=== PATIENT | female | born 1995 ===

== ENCOUNTER 2023-08-04 08:19 | Outpatient (CLI) | payer OTHER ==
--- NOTE | 2023-08-06 11:02 | MRI Report ---
PROCEDURE: Lumbar Spine WO INDICATIONS: LOWER BACK PAIN TECHNIQUE: Noncontrast sagittal T1 spin echo and T2 fast echo, sagittal STIR, axial T1 and T2 fast spin echo thr ough the lumbar spine. In cases with scoliosis, additional coronal T2 fast spin echo may be performe d. COMPARISON: No relevant comparisons at time of dictation. FINDINGS: Image quality: Excellent. Alignment and Curvature: Slight leftward curvature centered at L2. Bone Marrow: Marrow is of normal overall signal. No acute vertebral body compression fractures. Spinal Cord: Conus medullaris terminates at the L1 level. Visualized cord demonstrates normal signa l and size. Paraspinous Soft Tissues: No paravertebral masses. T12-L1: Normal in appearance. L1-L2: Normal in appearance. L2-L3: Normal in appearance. L3-L4: Normal in appearance. L4-L5: Mild facet hypertrophy. L5-S1: Mild facet hypertrophy. IMPRESSION: Lower lumbar facet hypertrophy. No significant degenerative disc disease. Slight leftward curvature of the thoracolumbar spine, centered at L2. Reviewed by: Albert Bingham MD on 08/06/2023 11:00 AM PDT Approved by: Albert Bingham MD on 08/06/2023 11:00 AM PDT Station ID: [id number]
== END 2023-08-04 08:20 | disposition home or self-care (01) ==
LOC: DI 08:19
PROVIDERS: ATTEND Nurse Practitioner Family
DX: M47.816 Spondylosis without myelopathy or radiculopathy, lumbar region (principal); M47.817 Spondylosis without myelopathy or radiculopathy, lumbosacral region; M41.9 Scoliosis, unspecified